=== PATIENT | female | born 1930 | race Caucasian/White ===

== ENCOUNTER 2016-10-28 08:51 | Emergency (ER) | payer MEDICARE ==
[2014-09-18 15:37] VITALS: BMI 23.1
[~2016-10-28 08:51] MED LIST: CELEXA20 MG PO; CRESTOR20 MG PO; METOPROLOL TAR100 M1 PO; VITAMIN B-121000 MCG PO; VITAMIN D5000 UNIT PO
[2016-10-28 09:34] LABS: BASOPHILS 0.2 % (0.0-2.0); EOSINOPHILS 0.4 % (0-7); HEMATOCRIT 45.5 % (36.0-48.0); HEMOGLOBIN 15.1 g/dL (12-16); IMMATURE GRANULOCYTES 0.6 % (0-5); LYMPHOCYTES 3.6 % (15-50); MCH 30.9 pg (26.0-34.0); MCHC 33.2 g/dL (31.0-37.0); MEAN PLATELET VOLUME 11.3 fL (7.4-10.4); MONOCYTES 1.1 % (2-11); NEUTROPHILS 94.1 % (40-80); RBC 4.89 10x6/uL (4.00-5.40); RDW 13.2 % (11.5-14.5); WBC 10.9 10x3/uL (4.8-10.8)
[2016-10-28 09:47] LABS: PLATELET COUNT 132 10x3/uL (130-400)
[2016-10-28 10:04] LABS: ALBUMIN 3.4 g/dL (3.4-5.0); ANION GAP 15.2 mmol/L (8-16); CALCIUM 9.1 mg/dL (8.5-10.1); CARBON DIOXIDE 25.9 mmol/L (21.0-32.0); CREATININE - SERUM 1.4 mg/dL (0.6-1.3); POTASSIUM - SERUM 3.1 mmol/L (3.5-5.1); PROTEIN - SERUM 7.6 g/dL (6.4-8.2)
[2016-10-28 10:04] LABS: APPEARANCE HAZY (CLEAR); BILIRUBIN NEGATIVE (NEGATIVE); COLOR YELLOW (YELLOW); GLUCOSE NEGATIVE (NEGATIVE); KETONE NEGATIVE (NEGATIVE); LEUKOCYTE ESTERASE 1+ (NEGATIVE); NITRITE POSITIVE (NEGATIVE); PROTEIN NEGATIVE (NEGATIVE); UROBILINOGEN NORMAL (NORMAL)
[2016-10-28 10:10] LABS: BACTERIA MANY /hpf (NONE SEEN); EPITHELIAL CELLS 0-5 /hpf (0-5); RED CELLS - URINE RARE /hpf (0-5)
== END 2016-10-28 11:34 | disposition home or self-care (01) ==
LOC: D.ER 08:51
PROVIDERS: Dermatology
DX: N39.0 Urinary tract infection, site not specified (principal)

== ENCOUNTER 2019-05-11 13:17 | Inpatient (IN) | payer MEDICARE ==
[~2019-05-11] VITALS: Ht 162.6 cm; Wt 69.4 kg
--- NOTE | 2019-05-11 14:30 | NUR ---
PT IS DEMENTIA PT AND WONT KEEP ON O2 MONITOR OR BP CUFF D/T FIGITING AND PULLING AT INSTRUMENTS. UNABLE TO DOCUMENT VITALS. DOES NOT APPEAR TO BE IN DISTRESS BUT HAS DELUSIONS AND CONFUSION.
--- NOTE | 2019-05-11 16:55 | NUR ---
PT C/O BREAST PAIN IN LEFT BREAST.
--- NOTE | 2019-05-11 18:02 | NUR ---
PT TOOK IV OUT. NOT BLEEDING. CATHETER TIP INTACT.
--- NOTE | 2019-05-11 19:30 | NUR ---
PT ARRIVED FROM ED VIA STRETCHER AND 2 STAFF, WAS ALERT AND ORIENTED TO PERSON ONLY, IV TO RIGHT AC PATENT AND INFUSING PER ORDERS. WEARING GOWN AND BLUE COLORED SKIRT UPON ARRIVAL, ABLE TO MOVE ALL EXTREMITIES WITH EASE, COMPLAINED OF BREAST HURTING AND BEING SORE, LEFT BREAST IS HARDENED WITH SLIGHT DISCOLORATIONS NOTED. CONSTANTLY PULLING AT TUBING AND SHEETS IN BED, VERY RESTLESS. WILL NOTE ANY CHANGE.
[2019-05-11] MEDS ORDERED: LIPITOR40 MG PO (19:44)
[2019-05-11] MEDS ORDERED: CYMBALTA30 MG PO (19:45)
[2019-05-11] MEDS ORDERED: DONEPEZIL HCL10 MG PO (19:45)
[2019-05-11] MEDS ORDERED: FISH OIL 1,0001 CA1 PO (19:46)
[2019-05-11] MEDS ORDERED: GLUCAGEN1 MG/VIAL SC (19:47)
[2019-05-11] MEDS ORDERED: INSTA-GLUCOSE31 GM PO (19:47)
[2019-05-11] MEDS ORDERED: METOPROLOL TART50 MG PO (19:48)
[2019-05-11] MEDS ORDERED: GLUCOPHAGE500 MG PO (19:48)
[2019-05-11] MEDS ORDERED: NAMENDA5 MG PO (19:48)
[2019-05-11] MEDS ORDERED: NOVOLOG100 UNIT/1 SC (19:49)
[2019-05-11] MEDS ORDERED: NAMENDA XR28 MG PO (19:49)
[2019-05-11] MEDS ORDERED: VITAMIN D31000 UNIT PO (19:51)
[2019-05-11] MEDS ORDERED: TYLENOL ARTHRI650 MG PO (19:51)
[2019-05-11 20:00] VITALS: BP 189/92
--- NOTE | 2019-05-11 23:22 | NUR ---
REFUSING TELEMETRY AT THIS TIME, PULLING LEADS OFF AND GRABBING ALL WIRES. ASKED STAFF IF WE WANTED HER TO JUST THROW IT IN THE FLOOR, THIS NURSE AND STAFF ASSISTED HER IN TAKING IT OFF. WILL NOTE ANY CHANGE.
[2019-05-12] VITALS (7 sets, daily range): BP systolic 105–206; BP diastolic 44–115; Ht 162.6 cm; Wt 69.4 kg
--- NOTE | 2019-05-12 00:09 | NUR ---
B/P REPORTED OF 206/115, CASINO CONTROLLER SERVICE FOR [employer] NOTIFIED AND CALLED BACK WITH ORDERS FOR CLONIDINE 0.1MG PO Q 8 HOURS PRN FOR SYSTOLIC GREATER THAN 180. AUTOMATION ENGINEERING MANAGER NOTIFIED, MEDICATION OBTAINED AND GIVEN ORALLY. WILL NOTE ANY CHAGNE.
--- NOTE | 2019-05-12 01:07 | NUR ---
NURSING STAFF WENT TO CHECK ON PATIENT, NOTICED BLUE TINGED LIPS, PULSE OX READING OF 72% OBTAINED, HOB RAISED, O2 ADMINISTERED PER NC, SATS INCREASED TO 94% WILL CONTINUE TO OBSERVE AND NOTE ANY CHANGE.
--- NOTE | 2019-05-12 03:26 | NUR ---
BP REPORTED OF 194/101, LINDSEY NOTIFIED WITH VERBAL ORDER FOR CLONIDINE 0.2MG NOW TIMES ONE. WILL ROUND IN AM.
--- NOTE | 2019-05-12 04:08 | NUR ---
MEDICATION GIVEN PER ORDERS, PT WANTED TO GET UP AND USE RESTROOM, BSC PLACED, TRANSFERED VIA 2 STAFF, SUCCESSFUL VOID. LAID BACK DOWN AND COVERED UP, WILL NOTE ANY CHANGE.
--- NOTE | 2019-05-12 04:42 | NUR ---
BP 147/63, RESTING COMFORTABLY, SPO2 92 ON 2 LITERS NC. WILL NOTE ANY CHANGE.
[2019-05-12 07:17] LABS: CALCIUM 8.5 mg/dL (8.5-10.1); CARBON DIOXIDE 28.4 mmol/L (21.0-32.0); CREATININE - SERUM 1.1 mg/dL (0.6-1.3); HEMATOCRIT 39.8 % (36.0-48.0); HEMOGLOBIN 12.9 g/dL (12-16); MCH 29.5 pg (26.0-34.0); MCHC 32.4 g/dL (31.0-37.0); MCV 90.9 fL (80.0-100.0); MEAN PLATELET VOLUME 11.2 fL (7.4-10.4); PLATELET COUNT 186 10x3/uL (130-400); POTASSIUM - SERUM 3.4 mmol/L (3.5-5.1); RBC 4.38 10x6/uL (4.00-5.40); RDW 13.7 % (11.5-14.5); WBC 5.6 10x3/uL (4.8-10.8)
[2019-05-12 08:48] LABS: BASOPHILS 1 % (0-2); EOSINOPHILS 2 % (0-7); LYMPHOCYTES 17 % (15-50); MONOCYTES 6 % (2-11); NEUTROPHILS 74 % (40-80); PLATELET ESTIMATE NORMAL
--- NOTE | 2019-05-12 09:00 | NUR ---
AWAKE WITH CONFUSION NOTED. VERBAL CUES AND ASSIST NEEDED FOR FEEDING.MASS NNOTED TO LT. BREAST WITH TENDERNESS. IVF INFUSING AT PRESCRIBED RATE. FALL PRECAUTIONS IN PLACE.
--- NOTE | 2019-05-12 19:40 | NUR ---
PT LYING IN BED RESTING WITHOUT DISTRESS. AWAKENS TO VERBAL STIMULI. ORIENTED TO SELF. LEFT BREAST MASS TENDER TO TOUCH. IV RIGHT AC INFUSING NS @ 75. O2 2.5L/NC. BED ALARM ON. CL IN REACH, WILL CTM
[2019-05-13] VITALS: BP 135/65
--- NOTE | 2019-05-13 02:00 | NUR ---
PT RESTING WITH EYES CLOSED, WITHOUT DISTRESS. NO NEEDS AT THIS TIME. BED ALARM ON. CL IN REACH, WILL CTM
[2019-05-13 04:00] VITALS: BP 147/82
[2019-05-13 07:07] LABS: HEMATOCRIT 42.2 % (36.0-48.0); HEMOGLOBIN 13.7 g/dL (12-16); MCH 29.5 pg (26.0-34.0); MCHC 32.5 g/dL (31.0-37.0); MCV 90.9 fL (80.0-100.0); MEAN PLATELET VOLUME 11.4 fL (7.4-10.4); PLATELET COUNT 186 10x3/uL (130-400); RBC 4.64 10x6/uL (4.00-5.40); WBC 4.6 10x3/uL (4.8-10.8)
[2019-05-13 07:11] LABS: ANION GAP 12.2 mmol/L (8-16); CALCIUM 8.7 mg/dL (8.5-10.1); CARBON DIOXIDE 26.2 mmol/L (21.0-32.0); CREATININE - SERUM 1.2 mg/dL (0.6-1.3); POTASSIUM - SERUM 3.4 mmol/L (3.5-5.1)
[2019-05-13 08:03] LABS: BASOPHILS 1 % (0-2); EOSINOPHILS 5 % (0-7); LYMPHOCYTES 27 % (15-50); MONOCYTES 14 % (2-11); NEUTROPHILS 52 % (40-80); PLATELET ESTIMATE NORMAL
[2019-05-13 09:15] VITALS: BP 144/89
--- NOTE | 2019-05-13 10:18 | NUR ---
PATIENT K+ IS 3.4 TODAY, SPOKE TO HOME SERVICE DIRECTOR IN REGARDS TO EP, ADVSIED TO PUT ORDER ON PT CHART, PT IS SLIGHTLY CONFUSED THIS MORNING AND EASY TO REORIENT, FALL PRECAUTIONS IN PLACE PT HAS TRIED SEVERAL TIMES THIS MORNING TO GET UP AND "FIND HER GLASSES" PT PULLED IV OUT AFTER BREAKFAST, WILL RESITE IV FOR MAINTENENCE FLUIDS, CONTINUE WITH PLAN OF CARE
[2019-05-13 13:10] VITALS: BP 120/66
--- NOTE | 2019-05-13 13:32 | NUR ---
PT SITTING UP AT BEDSIDE DRINKING ENSURE, REFUSED TO EAT ANYMORE STATED SHE WAS READY TO GO HOME AND GO TO BED, ADVISED PT SHE IS IN THE HOSPITAL AT [facility] AND THAT TIS WAS HER ROOM, PT STATED SHE DID NOT WANT TO SLEEP IN MY BED, TOLD HER THERE WAS PLENTY OF ROOM FOR HER AND THAT I WAS NOT SPENDING THE NIGHT, PT HAD GOWN TURNED AROUND WHERE OPEN SIDE WAS UPFRONT, TRIED TO GET PT TO TURN GOWN AROUND, SHE STATED SHE JUST NEEDED A BLANKET AND READY FOR A NAP, ASSISTED PT BACK INTO BAD, CL IN REACH BED LAURENCES TURNED ON CONTINUE WITH PLAN OF CARE
--- NOTE | 2019-05-13 14:42 | NUR ---
ATTEMPTED IV PT GOT UPSET AND SWATTED AT MY HAND AND TOLD ME TO LEAVE, ALLOWING PT TO SETTLE DOWN AND WILL SEE IF COWORKER CAN GET HER IV ACCESS
--- NOTE | 2019-05-13 15:00 | NUR ---
PT BED ALARM SOUNDING AGAIN, PT IS TRYING TO GET OUT OF BED, WANTS TO GO HOME, CONFUSED ABOUT WHERE SHE IS, WNATS MY HELP TO "SNEAK HER OUT OF THIS BUILDING HOME KELLY SUBRAMANIAN IS CAPTIVE". ADMINISTER PRN MEDICATION TO CALM PT DOWN
--- NOTE | 2019-05-13 15:14 | NUR ---
PT UP AGAIN TRYING TO GET OUT OF BED STATES SHE NEEDS PINS TO PUT HER DRESS ( GOWN) BACK TOGETHER, OFFERED TO GET HER A NEW GOWN PT STATED SHE HAS PLENTY AND JUST NEEDS TO GO HOME, HAD JUST ADMINISTERED ORDERED PRN MEDICATION FOR AGITATION, CONTINUE WITH PLAN OF CARE
--- NOTE | 2019-05-13 16:21 | NUR ---
PT CONTINUES TO CLIMB OUT OF BED WANTING TO GO HOME TO FIX SUPPER, ADVISED HER SUPPER IS ON ITS WAY, GOT PT BACK TO BED CAME TO SIT DOWNA ND ALARM IS OFF AGAIN, WENT DOWN TO ASK PT TO GET BACK TO BED, PT ARGUES THAT SHE IS NOT IN THE HOSPITAL AND IF SHE WAS TIS IS NOT HOW SHE IS TO BE TREATED, CONVINCED PT TO GET BACK TO BED. PAGED DORIAN WITH DR RAND IN REGARDS TO PT CONFUSION.
[2019-05-13 16:22] VITALS: BP 119/67
--- NOTE | 2019-05-13 16:57 | NUR ---
SPOKE TO EMT B AND WAS ADVISED TO ODER HALDOL 5MG IM ONE TIME DOSE FOR PT, CONTINUE WITH PLAN OF CARE
--- NOTE | 2019-05-13 18:00 | NUR ---
I have reviewed this patient and I concur with the Shift Assessment completed by the Licensed Practical Nurse today this shift.
--- NOTE | 2019-05-13 19:15 | NUR ---
PT RESTING WITH EYES CLOSED. AROUSES TO VERBAL STIMULI. CONFUSED TO TIME AND SITUATION. GOWN AND BED CHANGED. BOTH EYES RED. PT STATES "I AM TIRED AND READY GO TO BED." PT DENIES FURTHER NEEDS. FALL ALARM ON. CALL LIGHT WITHIN REACH OF PATIENT. DOOR OPEN. CPOC.
[2019-05-13 20:00] VITALS: BP 180/76
--- NOTE | 2019-05-14 03:51 | NUR ---
I have reviewed this patient and I concur with the Shift Assessment completed by the Licensed Practical Nurse today this shift.
[2019-05-14 04:00] VITALS: BP 198/80
--- NOTE | 2019-05-14 05:04 | NUR ---
ATTEMPTED TO START IV ON PATIENT SEVERAL TIMES. SOON NEEDLE WOULD INSERT INTO SKIN PATIENT WOULD SCREAM AND JUMP. WOULD REORIENT PATIENT BUT PATIENT STILL VERY CONFUSED. BEGAN GETTING UPSET WHEN EXPLAINING THE NEED FOR THE IV.
[2019-05-14 05:45] LABS: HEMATOCRIT 41.7 % (36.0-48.0); MCH 29.9 pg (26.0-34.0); MCHC 33.6 g/dL (31.0-37.0); MCV 89.1 fL (80.0-100.0); PLATELET COUNT 182 10x3/uL (130-400); RBC 4.68 10x6/uL (4.00-5.40); RDW 13.6 % (11.5-14.5)
[2019-05-14 06:00] LABS: ANION GAP 12.8 mmol/L (8-16); CALCIUM 8.8 mg/dL (8.5-10.1); CARBON DIOXIDE 27.4 mmol/L (21.0-32.0); POTASSIUM - SERUM 3.2 mmol/L (3.5-5.1)
--- NOTE | 2019-05-14 06:08 | NUR ---
TREATED HIGH BLOOD PRESSURE WITH PRN CATAPRESS.
--- NOTE | 2019-05-14 07:10 | NUR ---
PATIENT RESTING WITH EYES CLOSED, NO DISTRESS, CL IN REACH
[2019-05-14 07:32] LABS: INR 1.03 (0.85-1.17)
--- NOTE | 2019-05-14 08:18 | NUR ---
SABRINA WHITESIDE INSTRUCT THAT THIS PT MUST HAVE A MAMMOGRAM BEFORE DR BRIONES CAN BIOPSY SITE. THIS IS PER DR BRIONES. LIS STATES HE TALK TO DR RAND AND GET BACK WITH ME.
[2019-05-14 08:32] LABS: EOSINOPHILS 4 % (0-7); LYMPHOCYTES 16 % (15-50); MONOCYTES 18 % (2-11); NEUTROPHILS 59 % (40-80); PLATELET ESTIMATE NORMAL; ROULEAUX OCC
[2019-05-14 08:46] VITALS: BP 171/85
[2019-05-14 12:08] VITALS: BP 165/73
--- NOTE | 2019-05-14 12:16 | MORECARE ---
CASE MANAGEMENT DISCHARGE SUMMARY PATIENT: AWA KINNEY UNIT: [id number] ADM DATE: 05/11/19 AGE: 88 : 32 SEX: F ROOM/BED: D.2212 AUTHOR: ALEXEI BRAUN PHYSICIAN: REFERRING PHYSICIAN: FREDIS LEYVA MD DATE OF SERVICE: 05/14/19 Discharge Plan Patient Name: AWA KINNEY [facility] [facility] 1930 Planned Disposition: Anticipated Discharge Date: Discharge Date: Expected LOS: Initial Reviewer: [email or web address] Initial Review Date: 05/11/2019 Generated: 05/14/19 1:16 pm Patient Name: AWA KINNEY Page [phone] at 1216 All edits/amendments must be made on the electronic document DICTATION DATE: 05/14/19 1216 HEAVY EQUIPMENT SUPERVISOR: YAZ 05/14/19 1216 RPT#: [id number] DC DATE: STATUS: ADM IN [facility] [address] [place] [address] END OF REPORT
--- NOTE | 2019-05-14 13:12 | NUR ---
NUTRITION F/U CHART REVIEWED, PT RESTING. CURRENTLY NPO FOR PROCEDURE. WILL PROVIDE DIET WHEN RESUMED, MONITOR PT PROGRESS. RD FOLLOWING
[2019-05-14 16:41] VITALS: BP 136/47
[2019-05-14 20:00] VITALS: BP 142/78
[2019-05-15 04:00] VITALS: BP 183/98
--- NOTE | 2019-05-15 04:39 | NUR ---
PT LYING IN BED. EYES CLOSED. NO SIGNS OF DISTRESS. BREATHING EVEN AND UNLABORED. NO IV SITE DUE TO PT WILL NOT KEEP ON IN. LT BREAST MASS VISABLE. BOWEL SOUNDS ACTIVE. WILL CONTINUE PLAN OF CARE. CALL LIGHT IN REACH. BED LOWERED AND LOCKED. MAXIME ALARM ON. BED RAILS UPX3.
--- NOTE | 2019-05-15 07:50 | NUR ---
PT RESTING IN BED WITH EYES CLOSED. NO ACUTE DISTRESS NOTED. AROUSES WITH NAME CALLED. DISORIENTED TO PLACE TIME AND SITUATION. DENIES PAIN AT THIS TIME. MASS NOTED TO LEFT BREAST. MAXIME BED ALARM IN PLACE AND ON. CL WITHIN REACH. ENCOURAGED TO CALL WITH NEEDS. CONTINUE POC
[2019-05-15 08:36] VITALS: BP 183/98
--- NOTE | 2019-05-15 08:49 | NUR ---
ON MAY 11, 2019: WASTED 0.5ML ATIVAN IN FRONT OF MO DEUTSCH RN PER DEPARTMENT PROTOCOL
--- NOTE | 2019-05-15 10:00 | NUR ---
PT RESTING QUIETLY IN BED WITH EYES CLOSED. NO ACUTE DISTRESS NOTED. CL WITHIN REACH. MAXIME BED ALARM ON. WILL CONTINUE TO MONITOR.
--- NOTE | 2019-05-15 11:50 | NUR ---
STAFF WAS CONTACTED BY ERIC ZAVALA REGARDING MAMMOGRAM BEING CANCELED. INFORMED HIM THAT MAMMOGRAPHY HAD COME TO VISIT WITH PT AND SHE HAD SPOKEN WITH MD AND WAS ADVISED THAT A MAMMOGRAM WAS NOT NEEDED PRIOR TO BIOPSY AND THAT BIOPSY WAS SCHEDULED FOR THE AM. HE VOICED UNDERSTANDING. DISCUSSED WITH HIM REGARDING HER CONFUSION AND ONGOING PULLING IV'S OUT HE ORDERED FOR ORAL ANTIBIOTICS AT THIS TIME AND OK TO START IV IN AM FOR PROCEDURE.
[2019-05-15 12:56] VITALS: BP 156/69
--- NOTE | 2019-05-15 13:50 | NUR ---
PT MAXIME BED ALARM SOUNDING. FOUND PT SITTING UP IN BED, STATING "I'M JUST ADJUSTING MY SHIRT". REORIENTATED PT, PT RETURNED TO LYING POSITION AT THIS TIME AND JUST SMILED. PT IS BECOMING MORE RESTLESS AT THIS TIME, PICKING AT THINGS AND ATTEMPTING TO GET OUT OF BED ON HER OWN. ATTEMPTED TO PROVIDE REDIRECTION, DISCOURAGING HER ATTEMPTS TO GET UP ON HER OWN FOR SAFETY, BUT D/T CONFUSION HER COMPREHENSION IS LIMITED. WILL CONTINUE TO MONITOR.
--- NOTE | 2019-05-15 15:17 | MORECARE ---
CASE MANAGEMENT DISCHARGE SUMMARY PATIENT: AWA KINNEY UNIT: [id number] ADM DATE: 05/11/19 AGE: 88 : 32 SEX: F ROOM/BED: D.2212 AUTHOR: ALEXEI BRAUN PHYSICIAN: REFERRING PHYSICIAN: FREDIS LEYVA MD DATE OF SERVICE: 05/15/19 Discharge Plan Patient Name: AWA KINNEY [facility] [facility] 1930 Planned Disposition: Nursing Facility [facility] Anticipated Discharge Date: Discharge Date: Expected LOS: Initial Reviewer: [email or web address] Initial Review Date: 05/15/2019 Generated: 05/15/19 4:17 pm Last DP export: 05/14/19 11:16 a Patient Name: AWA KINNEY Page [id number] at 1517 All edits/amendments must be made on the electronic document DICTATION DATE: 05/15/191516 TIRE REPAIRMAN: YAZ 05/15/19 1517 RPT#: [id number] DC DATE: STATUS: ADM IN [facility] [address] [place] [address] END OF REPORT
--- NOTE | 2019-05-15 15:26 | MORECARE ---
CASE MANAGEMENT DISCHARGE SUMMARY PATIENT: AWA KINNEY UNIT: [id number] ADM DATE: 05/11/19 AGE: 88 : 32 SEX: F ROOM/BED: D.2212 AUTHOR: ALEXEI BRAUN PHYSICIAN: REFERRING PHYSICIAN: FREDIS LEYVA MD DATE OF SERVICE: 05/15/19 Discharge Plan Patient Name: AWA KINNEY Facility: [facility]:[place] : 1930 Planned Disposition: Nursing Facility [facility] Cert Anticipated Discharge Date: Discharge Date: Expected LOS: Initial Reviewer: [email or web address] Initial Review Date: 05/15/2019 Generated: 05/15/19 4:25 pm Comments DCP- Discharge Planning Updated by [id number]: Mary Lou Cm on 05/15/19 2:[address] Patient Name: AWA KINNEY Admission Status: ER Accout number: [id number] Admission Date: 05-11-2019 : 1930 Admission Diagnosis:URINARY TRACT INFECTION, SITE NOT SPECIFIED Attending: FREDIS LEYVA Current LOS: 4 Anticipated DC Date: Planned Disposition: Nursing Facility [facility] Cert Primary Insurance: MEDICARE A & B Discharge Planning Comments: CM met with patient to discuss discharge planning, she is alone in the room. She is pleasantly confused. She lives at [facility]. She was unable to sign the BUDDY to return to [facility]. She does state that "they will come get me in their van." when I asked about discharge transportation. She tells me she's lived there for 2 weeks. I called her niece (Janet) at [phone] with no answer. CM will continue to follow and assist with discharge planning/needs. Credit Risk Management Director: Mary Lou Cm Last DP export: 05/15/19 2:17 p Patient Name: AWA KINNEY Page [phone] at 1586 All edits/amendments must be made on the electronic document DICTATION DATE: 05/15/19 1525 EXPERIMENTAL MACHINIST: YAZ 05/15/19 1525 RPT#: [id number] DC DATE: STATUS: ADM IN [facility] [address] [place] [address] END OF REPORT
--- NOTE | 2019-05-15 16:30 | NUR ---
CONTACTED [facility] TO CONFIRM PERSON TO NOTIFY FOR CONSENT FOR BIOPSY 05/16/19. WAS INFORMED ALEXSANDER SHELBY WAS PT NIECE AND WOULD NEEDED TO BE CONTACTED FOR CONSENT. CONTACTED ALEXSANDER SHELBY, NO ANSWER, MESSAGE LEFT TO RETURN CALL.
[2019-05-15 17:36] VITALS: BP 98/77
--- NOTE | 2019-05-15 19:35 | NUR ---
LYING IN BED WITH EYES CLOSED, AROUSED TO VOICE. UNABLE TO VOCALLY DETERMINE PAIN, BUT SHOWS NO S/S OF ANY PAIN OR DISTRESS AT THIS TIME. WILL NOTE ANY CHANGE.
[2019-05-15 20:00] VITALS: BP 147/71
--- NOTE | 2019-05-15 20:30 | NUR ---
FAMILY MEMBER ALEXSANDER BRUSH RETURNED THIS NURSES PHONE CALL AND WAS INFORMED OF OUR NEED TO GET CONSENT FOR PROCEDURE SCHEDULED FOR TOMORROW, SHE WAS VERY UNSURE OF MAKING DECISION ON HER OWN, WAS GOING TO CONSULT WITH OTHER FAMILY MEMBER AND CALL US BACK QUICKLY, GUTIERREZ STATES SHE WORKS HERE AT [facility] IN [place] AND IS UNABLE TO USE PHONE DURING BUSINESS HOURS.
--- NOTE | 2019-05-16 02:49 | NUR ---
I have reviewed this patient and I concur with the Shift Assessment completed by the Licensed Practical Nurse today this shift.
--- NOTE | 2019-05-16 05:23 | NUR ---
RESTED WELL THIS SHIFT, REFUSED LAB DRAWS THIS MORNING. REMAINS NPO AT THIS TIME. WILL NOTE ANY CHANGE.
--- NOTE | 2019-05-16 06:38 | NUR ---
LAB RETRIED DRAW AND WAS SUCCESSFUL.
[2019-05-16 07:01] LABS: ANION GAP 11.2 mmol/L (8-16); CALCIUM 9.2 mg/dL (8.5-10.1); CARBON DIOXIDE 30.1 mmol/L (21.0-32.0); CREATININE - SERUM 1.1 mg/dL (0.6-1.3); POTASSIUM - SERUM 3.3 mmol/L (3.5-5.1)
[2019-05-16 07:04] LABS: APTT 31.1 SECONDS (22.8-39.4); INR 1.03 (0.85-1.17)
[2019-05-16 07:16] LABS: HEMATOCRIT 41.8 % (36.0-48.0); HEMOGLOBIN 14.1 g/dL (12-16); MCH 29.6 pg (26.0-34.0); MCHC 33.7 g/dL (31.0-37.0); MCV 87.8 fL (80.0-100.0); PLATELET COUNT 189 10x3/uL (130-400); RBC 4.76 10x6/uL (4.00-5.40); RDW 13.5 % (11.5-14.5)
--- NOTE | 2019-05-16 07:32 | NUR ---
PT RESTING IN BED. AROUSED BY VERBAL STIMULI. NO S/S OF ACUTE DISTRESS. CL IN PLACE.
--- NOTE | 2019-05-16 08:41 | NUR ---
CALLED ALEXSANDER. LEFT VM. NO ANSWER.
[2019-05-16 08:55] VITALS: BP 160/74
[2019-05-16 08:57] LABS: EOSINOPHILS 3 % (0-7); LYMPHOCYTES 24 % (15-50); MONOCYTES 8 % (2-11); NEUTROPHILS 63 % (40-80); PLATELET ESTIMATE NORMAL; ROULEAUX OCC
--- NOTE | 2019-05-16 09:44 | NUR ---
FAMILY DECLINE BIOPSY. FAMILY WANTING A "HOSPICE CONSULT".
--- NOTE | 2019-05-16 13:25 | NUR ---
PT BED ALARM GOING OFF. RESPONDED TO ALARM. PATIENT IN FLOOR SITTING. NO CO OF PAIN OR SIGNS OF DISTRESS. BP 150/76, HR 71, RESP 18 O2 96% ON ROOM AIR. TEMP IS 98.8. NOTIFIED HOUSE RYLAND ALFORD WELL Arnulfo WHITESIDE FROM DR BOURNE OFFICE WHO ADVISED TO KEEP AN EYE ON HER. POSSE ALARM ON WHILE PATIENT IN CHAIR AT THIS TIME. CL IN REACH. WCTM
[2019-05-16 13:57] VITALS: BP 148/84
--- NOTE | 2019-05-16 14:11 | NUR ---
RETURNED FROM LUNCH AT 1440. SPOKE WITH SADNRA BARAJAS WHO STATED, "2211 FELL, HOUSE SUP NOTIFIED, NO INJURIES NOTED, VS STABLE." CALLED HOUSE SUP TO SEE IF WE CAN MOVE PT TO SIGHT. MOVED PT TO 2213. PT RESTING IN BED. BED ALARM ON. NO S/S OF ACUTE DISTRESS. CL IN PLACE.
--- NOTE | 2019-05-16 14:13 | MORECARE ---
CASE MANAGEMENT DISCHARGE SUMMARY PATIENT: AWA KINNEY UNIT: [id number] ADM DATE: 05/11/19 AGE: 88 : 32 SEX: F ROOM/BED: D.2214 AUTHOR: ALEXEI BRAUN PHYSICIAN: REFERRING PHYSICIAN: FREDIS LEYVA MD DATE OF SERVICE: 05/16/19 Discharge Plan Patient Name: AWA KINNEY Facility: [facility]:[place] : 1930 Planned Disposition: Nursing Facility [facility] Cert Anticipated Discharge Date: Discharge Date: Expected LOS: Initial Reviewer: [email or web address] Initial Review Date: 05/15/2019 Generated: 05/16/19 3:13 pm Comments DCP- Discharge Planning Updated by [id number]: Love Jason on 05/16/19 1:[address] SPOKE WITH ALBERTA AT THE [facility] TO LET HER KNOW THAT WE ANTICIPATE THE PATIENT TO BE DISCHARGED TODAY & WILL BE GETTING HOSPICE WHEN THEY RETURN DCP- Discharge Planning Updated by [id number]: Mary Lou Cm on 05/15/19 2:[address] Patient Name: AWA KINNEY Admission Status: ER Accout number: [id number] Admission Date: 05-11-2019 : 1930 Admission Diagnosis:URINARY TRACT INFECTION, SITE NOT SPECIFIED Attending: FREDIS LEYVA Current LOS: 4 Anticipated DC Date: Planned Disposition: Nursing Facility [facility] Cert Primary Insurance: MEDICARE A & B Discharge Planning Comments: CM met with patient to discuss discharge planning, she is alone in the room. She is pleasantly confused. She lives at [facility]. She was unable to sign the BUDDY to return to [facility]. She does state that "they will come get me in their van." when I asked about discharge transportation. She tells me she's lived there for 2 weeks. I called her niece (Janet) at [phone] with no answer. CM will continue to follow and assist with discharge planning/needs. Nurse Healthcare Manager: Mary Lou Cm Last DP export: 05/15/19 2:26 p Patient Name: AWA KINNEY Page [id number] at 1413 All edits/amendments must be made on the electronic document DICTATION DATE: 05/16/191411 SHAG TRUCK DRIVER: YAZ 05/16/191411 RPT#: [id number] DC DATE: STATUS: ADM IN [facility] [address] [place] [address] END OF REPORT
--- NOTE | 2019-05-16 14:20 | NUR ---
CALLED MARLENE BETLRE ABOUT FALL AND ROOM CHANGE TO 2214. "OK WITH ROOM CHANGE."
[2019-05-16 16:24] VITALS: BP 112/67
--- NOTE | 2019-05-16 20:00 | NUR ---
ASSESSMENT PER FLOWSHEET. LARGE MASS TO LEFT BREAST NOTED. SR UP X3 CALL LIGHT WITHIN REACH PT IS CONFUSED TO PLACE TIME AND SITUATION. MAXIME MAT TO BED WITH ALARMS SET.
[2019-05-16 21:15] VITALS: BP 176/80
--- NOTE | 2019-05-16 21:30 | NUR ---
MEDS GIVEN PER DEC. COMPLETE BED BATH WITH LINENS CHANGE DONE BY INVESTMENT ANALYST.
--- NOTE | 2019-05-16 23:47 | NUR ---
EYES CLOSED RESPIRATIONS WITH EASE AND UNLABORED.
[2019-05-17 05:11] VITALS: BP 164/84
--- NOTE | 2019-05-17 07:43 | NUR ---
PT RESTING IN BED. AROUSED BY VERABL STIMULI. NO S/S OF ACUTE DISTRESS. MAXIME ALARM ON. CL IN PLACE.
[2019-05-17] MEDS ORDERED: OMNICEF300 MG PO (08:07)
[2019-05-17 08:30] VITALS: BP 168/76
--- NOTE | 2019-05-17 09:29 | MORECARE ---
CASE MANAGEMENT DISCHARGE SUMMARY PATIENT: AWA KINNEY UNIT: [id number] ADM DATE: 05/11/19 AGE: 88 : 32 SEX: F ROOM/BED: D.2214 AUTHOR: ALEXEI BRAUN PHYSICIAN: REFERRING PHYSICIAN: FREDIS LEYVA MD DATE OF SERVICE: 05/17/19 Discharge Plan Patient Name: AWA KINNEY Facility: [facility]:[place] : 1930 Planned Disposition: Nursing Facility [facility] Cert Anticipated Discharge Date: Discharge Date: Expected LOS: Initial Reviewer: [email or web address] Initial Review Date: 05/15/2019 Generated: 05/17/19 10:29 am Comments DCP- Discharge Planning Updated by [id number]: Love Jason on 05/16/19 1:[address] SPOKE WITH ALBERTA AT THE [facility] TO LET HER KNOW THAT WE ANTICIPATE THE PATIENT TO BE DISCHARGED TODAY & WILL BE GETTING HOSPICE WHEN THEY RETURN DCP- Discharge Planning Updated by [id number]: Mary Lou Cm on 05/15/19 2:[address] Patient Name: AWA KINNEY Admission Status: ER Accout number: [id number] Admission Date: 05-11-2019 : 1930 Admission Diagnosis:URINARY TRACT INFECTION, SITE NOT SPECIFIED Attending: FREDIS LEYVA Current LOS: 4 Anticipated DC Date: Planned Disposition: Nursing Facility [facility] Cert Primary Insurance: MEDICARE A & B Discharge Planning Comments: CM met with patient to discuss discharge planning, she is alone in the room. She is pleasantly confused. She lives at [facility]. She was unable to sign the BUDDY to return to [facility]. She does state that "they will come get me in their van." when I asked about discharge transportation. She tells me she's lived there for 2 weeks. I called her niece (Janet) at [phone] with no answer. CM will continue to follow and assist with discharge planning/needs. Enamel Shader: Mary Lou Cm Last DP export: 05/16/19 1:13 p Patient Name: AWA KINNEY Page [phone] at 0929 All edits/amendments must be made on the electronic document DICTATION DATE: 05/17/19928 JOURNAL ENTRY AUDIT CLERK: YAZ 05/17/19928 RPT#: [id number] DC DATE: STATUS: ADM IN [facility] [address] [place] [address] END OF REPORT
--- NOTE | 2019-05-17 09:36 | MORECARE ---
CASE MANAGEMENT DISCHARGE SUMMARY PATIENT: AWA KINNEY UNIT: [id number] ADM DATE: 05/11/19 AGE: 88 : 32 SEX: F ROOM/BED: D.2214 AUTHOR: ALEXEI BRAUN PHYSICIAN: REFERRING PHYSICIAN: FREDIS LEYVA MD DATE OF SERVICE: 05/17/19 Discharge Plan Patient Name: AWA KINNEY Facility: [facility]:[place] : 1930 Planned Disposition: Nursing Facility [facility] Cert Anticipated Discharge Date: Discharge Date: Expected LOS: Initial Reviewer: [email or web address] Initial Review Date: 05/15/2019 Generated: 05/17/19 10:36 am Comments DCP- Discharge Planning Updated by [id number]: Love Jason on 05/17/19 8:[address] Patient has dc orders to 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 The family has set up [facility] and they will admit when she gets back to the facility Janet (bradly) called and made aware that [facility] will be here between 11:30 & 12:00 to pick her up. She was at the Hospice company signing paperwork. CM will continue to follow and assist as needed. IMM went over via phone with Janet DCP- Discharge Planning Updated by [id number]: Love Jason on 05/16/19 1:[address] SPOKE WITH ALBERTA AT THE [facility] TO LET HER KNOW THAT WE ANTICIPATE THE PATIENT TO BE DISCHARGED TODAY & WILL BE GETTING HOSPICE WHEN THEY RETURN DCP- Discharge Planning Updated by [id number]: Mary Lou Cm on 05/15/19 2:[address] Patient Name: AWA KINNEY Admission Status: ER Accout number: [id number] Admission Date: 05-11-2019 : 1930 Admission Diagnosis:URINARY TRACT INFECTION, SITE NOT SPECIFIED Attending: FREDIS LEYVA Current LOS: 4 Anticipated DC Date: Planned Disposition: Nursing Facility [facility] Cert Primary Insurance: MEDICARE A & B Discharge Planning Comments: CM met with patient to discuss discharge planning, she is alone in the room. She is pleasantly confused. She lives at [facility]. She was unable to sign the BUDDY to return to [facility]. She does state that "they will come get me in their van." when I asked about discharge transportation. She tells me she's lived there for 2 weeks. I called her niece (Janet) at [phone] with no answer. CM will continue to follow and assist with discharge planning/needs. Product Development Coordinator: Mary Lou Cm External Providers External Provider: [facility] Next Contact Date: Service Request Date: Service Type: Resolution: Reviewer: Comments: Coverage Notice Reviewer: [email or web address] - Love Jason Notice Issued Date-Time: 05/17/2019 9:31 Notice Type: IM Discharge Notice Notice Delivered To: Family Member Relationship to Patient: Niece Director Client Services Name: janet Delivery Method: PHONE - Phone Manasa Days: Prior Verbal Notification: Recipient Understood Notice: Yes Recipient Signature: Med Rec Note Co-signed by Attending: Coverage Notice Comment: pt unable to understand or sign Last DP export: 05/17/19 8:29 am Patient Name: AWA KINNEY Page [phone] at 0936 All edits/amendments must be made on the electronic document DICTATION DATE: 05/17/19934 REMOTE SENSING RESEARCH SCIENTIST: YAZ 05/17/19934 RPT#: [id number] DC DATE: STATUS: ADM IN [facility] [address] [place] [address] END OF REPORT
--- NOTE | 2019-05-17 09:46 | NUR ---
CALLED REPORT TO CODY. LICENSED MIDWIFE TIME AROUND NOON.
--- NOTE | 2019-05-17 09:57 | NUR ---
APPLIED LUBE TO FINGER AND DIGITALLY REMOVED HARD BM FROM PT RECTUM. X1 SALINE ENEMA ADMINISTERED. NO S/S OF ACUTE DISTRESS.
--- NOTE | 2019-05-17 10:35 | MORECARE ---
CASE MANAGEMENT DISCHARGE SUMMARY PATIENT: AWA KINNEY UNIT: [id number] ADM DATE: 05/11/19 AGE: 88 : 34 SEX: F ROOM/BED: D.2214 AUTHOR: ALEXEI BRAUN PHYSICIAN: REFERRING PHYSICIAN: FREDIS LEYVA MD DATE OF SERVICE: 05/17/19 Discharge Plan Patient Name: AWA KINNEY Facility: [facility]:[place] : 1930 Planned Disposition: Nursing Facility [facility] Cert Anticipated Discharge Date: Discharge Date: Expected LOS: Initial Reviewer: [email or web address] Initial Review Date: 05/15/2019 Generated: 05/17/19 11:35 am Comments DCP- Discharge Planning Updated by [email or web address]: Love Jason on 05/17/19 8:[address] Patient has dc orders to go back [place] [facility] where she is a emt intermediate resident. The family has set up [facility] and they will admit when she gets back to the facility Janet (bradly) called and made aware that [facility] will be here between 11:30 & 12:00 to pick her up. She was at the Hospice company signing paperwork. CM will continue to follow and assist as needed. IMM went over via phone with Janet DCP- Discharge Planning Updated by [email or web address]: Love Jason on 05/16/19 1:[address] SPOKE WITH ALBERTA AT THE ASSISTED TO LET HER KNOW THAT WE ANTICIPATE THE PATIENT TO BE DISCHARGED TODAY & WILL BE GETTING HOSPICE WHEN THEY RETURN DCP- Discharge Planning Updated by [email or web address]: Mary Lou Cm on 05/15/19 2:[address] Patient Name: AWA KINNEY Admission Status: ER Accout number: [id number] Admission Date: 05-11-2019 : 1930 Admission Diagnosis:URINARY TRACT INFECTION, SITE NOT SPECIFIED Attending: FREDIS LEYVA Current LOS: 4 Anticipated DC Date: Planned Disposition: Nursing Facility [facility] Cert Primary Insurance: MEDICARE A & B Discharge Planning Comments: CM met with patient to discuss discharge planning, she is alone in the room. She is pleasantly confused. She lives at [facility]. She was unable to sign the BUDDY to return to [facility]. She does state that "they will come get me in their van." when I asked about discharge transportation. She tells me she's lived there for 2 weeks. I called her niece (Janet) at [phone] with no answer. CM will continue to follow and assist with discharge planning/needs. Locker Room Manager: Mary Lou Cm External Providers External Provider: [facility] Next Contact Date: Service Request Date: Service Type: Resolution: Reviewer: Comments: Coverage Notice Reviewer: [id number] Cesar Jason Notice Issued Date-Time: 05/17/2019 9:31 Notice Type: IM Discharge Notice Notice Delivered To: Family Member Relationship to Patient: Niece Electrical Helper Name: janet Delivery Method: PHONE - Phone Manasa Days: Prior Verbal Notification: Recipient Understood Notice: Yes Recipient Signature: Med Rec Note Co-signed by Attending: Coverage Notice Comment: pt unable to understand or sign Last DP export: 05/17/19 8:36 am Patient Name: AWA KINNEY Page [id number] at 1035 All edits/amendments must be made on the electronic document DICTATION DATE: 05/17/19 1035 TEXTILE MACHINERY SALES REPRESENTATIVE: YAZ 05/17/19 1035 RPT#: [id number] DC DATE: STATUS: ADM IN [facility] [address] [place] [address] END OF REPORT
[2019-05-17 10:36] LABS: ALBUMIN 3.3 g/dL (3.4-5.0); BILIRUBIN - TOTAL 0.43 mg/dL (0.2-1.3); CARBON DIOXIDE 27.5 mmol/L (21.0-32.0); CREATININE - SERUM 1.3 mg/dL (0.6-1.3); POTASSIUM - SERUM 3.5 mmol/L (3.5-5.1); PROTEIN - SERUM 7.5 g/dL (6.4-8.2)
--- NOTE | 2019-05-17 11:30 | NUR ---
CHANGED PT. LARGE SOLID BROWN BM NOTED. BREIF PUT ON. GAVE ALL BELONGINGS TO TRANSPORT. NO S/S OF ACUTE DISTRESS. NO IV NOTED. TRANSPORT TOOK PT DOWN VIA WC
--- NOTE | 2019-05-21 11:35 | MORECARE ---
CASE MANAGEMENT DISCHARGE SUMMARY PATIENT: AWA KINNEY UNIT: [id number] ADM DATE: 05/11/19 AGE: 88 : 34 SEX: F ROOM/BED: D.2214 AUTHOR: ALEEXI BRAUN PHYSICIAN: REFERRING PHYSICIAN: FREDIS LEYVA MD DATE OF SERVICE: 05/21/19 Discharge Plan Patient Name: AWA KINNEY Facility: [facility]:[place] : 1930 Planned Disposition: Nursing Facility [facility] Cert Anticipated Discharge Date: Discharge Date: 05/17/2019 Expected LOS: 0 Initial Reviewer: [email or web address] Initial Review Date: 05/15/2019 Generated: 05/21/19 12:35 pm Comments DCP- Discharge Planning Updated by [email or web address]: Love Jason on 05/17/19 8:[address] Patient has dc orders to go back to [facility]hab where she is a detention resident. The family has set up [facility] and they will admit when she gets back to the facility Janet (bradly) called and made aware that [facility] will be here between 11:30 & 12:00 to pick her up. She was at the Hospice company signing paperwork. CM will continue to follow and assist as needed. IMM went over via phone with Janet DCP- Discharge Planning Updated by [email or web address]: Love Jason on 05/16/19 1:[address] SPOKE WITH ALBERTA AT THE [facility] TO LET HER KNOW THAT WE ANTICIPATE THE PATIENT TO BE DISCHARGED TODAY & WILL BE GETTING HOSPICE WHEN THEY RETURN DCP- Discharge Planning Updated by [email or web address]: Mary Lou Cm on 05/15/19 2:[address] Patient Name: AWA KINNEY Admission Status: ER Accout number: [id number] Admission Date: 05-11-2019 : 1930 Admission Diagnosis:URINARY TRACT INFECTION, SITE NOT SPECIFIED Attending: FREDIS LEYVA Current LOS: 4 Anticipated DC Date: Planned Disposition: Nursing Facility [facility] Cert Primary Insurance: MEDICARE A & B Discharge Planning Comments: CM met with patient to discuss discharge planning, she is alone in the room. She is pleasantly confused. She lives at [facility]. She was unable to sign the BUDDY to return to [facility]. She does state that "they will come get me in their van." when I asked about discharge transportation. She tells me she's lived there for 2 weeks. I called her niece (Janet) at [phone] with no answer. CM will continue to follow and assist with discharge planning/needs. Second Language Tutor: Mary Lou Cm Coverage Notice Reviewer: [id number] Cesar Jason Notice Issued Date-Time: 05/17/2019 9:31 Notice Type: IM Discharge Notice Notice Delivered To: Family Member Relationship to Patient: Niece Golf Teacher Name: janet Delivery Method: PHONE - Phone Manasa Days: Prior Verbal Notification: Recipient Understood Notice: Yes Recipient Signature: Med Rec Note Co-signed by Attending: Coverage Notice Comment: pt unable to understand or sign Last DP export: 05/17/19 9:35 am Patient Name: AWA KINNEY Page [id number] at 1135 All edits/amendments must be made on the electronic document DICTATION DATE: 05/21/19 1135 CARGO SUPERVISOR: YAZ 05/21/19 1135 RPT#: [id number] DC DATE:05/17/19 STATUS: DIS IN [facility] [address] [facility] [place] [address] END OF REPORT
== END 2019-05-17 12:16 | disposition home health service (06) | DRG 71 ==
LOC: D.ER 13:17 → D.MS 17:48
PROVIDERS: Emergency Medicine; Family Medicine; General Practice; Radiology Diagnostic Radiology; ADMIT Legal Medicine; ATTEND Legal Medicine
DX: G93.41 Metabolic encephalopathy (principal); N39.0 Urinary tract infection, site not specified; I95.9 Hypotension, unspecified; N63.0 Unspecified lump in unspecified breast; R41.82 Altered mental status, unspecified; G30.8 Other Alzheimer's disease; F02.80 Dementia in other diseases classified elsewhere, unspecified severity, without behavioral disturbance, psychotic disturbance, mood disturbance, and anxiety; D72.819 Decreased white blood cell count, unspecified; I10 Essential (primary) hypertension; E87.6 Hypokalemia; F03.90 Unspecified dementia, unspecified severity, without behavioral disturbance, psychotic disturbance, mood disturbance, and anxiety; C50.912 Malignant neoplasm of unspecified site of left female breast